=== PATIENT | female | born 1990 | race Caucasian/White ===

== ENCOUNTER 2019-02-05 21:51 | Inpatient (IN) | payer MEDICAID ==
[~2019-02-05] VITALS: Ht 162.6 cm; Wt 137.3 kg
[2019-02-05 22:20] VITALS: BP 126/77
[2019-02-05] MEDS ORDERED: LACTATED RINGERS 1,000 ML IV SCH (22:25)
[2019-02-05] MEDS ORDERED: NEWBORN KIT ONE (22:28)
[2019-02-05] MEDS ORDERED: SODIUM CITRATE/CITRIC ACID 15 ML UDC ONE (22:28)
[2019-02-05] MEDS ORDERED: METOCLOPRAMIDE 5 MG/ML, 2ML ONE (22:28)
[2019-02-05] MEDS ORDERED: OXYTOCIN 30U/ 0.9% NaCL 500ML 500 ML ONE (22:28)
[2019-02-05] MEDS ORDERED: LACTATED RINGERS 1,000 ML IVBOLUS ONE (22:30)
[2019-02-05] MEDS ORDERED: SODIUM CITRATE/CITRIC ACID 15 ML UDC PO ONE (22:30)
[2019-02-05] MEDS ORDERED: CALCIUM CARBONATE 500 MG TAB.CHEW PO PRN (22:30)
[2019-02-05] MEDS ORDERED: METOCLOPRAMIDE 5 MG/ML, 2ML IV ONE (22:30)
[2019-02-05] MEDS ORDERED: ONDANSETRON 2MG/ML, 2ML IVPush ONE (22:30)
[2019-02-05] MEDS: LACTATED RINGERS 1,000 ML IV SCH (22:34)
[2019-02-05] MEDS ORDERED: OXYTOCIN 10 UNITS/ML, 1ML ONE (22:47)
[2019-02-05] MEDS ORDERED: ONDANSETRON 2MG/ML, 2ML ONE (22:47)
[2019-02-05] MEDS ORDERED: HYDROmorphone 2 MG/ML, 1ML ONE (22:47)
[2019-02-05] MEDS ORDERED: FENTANYL PF 100 MCG/2ML ONE (22:47)
[2019-02-05] MEDS ORDERED: CEFAZOLIN 1,000 MG ONE ×2 (22:47→22:54)
[2019-02-05] MEDS ORDERED: SODIUM CHLORIDE 0.9% PF 10ML ONE ×3 (22:54)
[2019-02-05 22:57] LABS: BASOPHILS # (AUTO) 0.15 x10^3/uL (0-0.1); BASOPHILS % (AUTO) 2 % (0-1); EOSINOPHILS # (AUTO) 0.22 x10^3/uL (0-0.4); EOSINOPHILS % (AUTO) 2 % (1-7); LYMPHOCYTES # (AUTO) 1.78 x10^3/uL (1-3.4); LYMPHOCYTES % (AUTO) 20 % (22-44); MD NO; MEAN CORPUSCULAR HEMOGLOBIN 21.9 pg (27.0-34.8); MEAN CORPUSCULAR HGB CONC 32.1 g/dL (32.4-35.8); MEAN PLATELET VOLUME 10.7 fL (7.4-10.4); MONOCYTES # (AUTO) 0.68 x10^3/uL (0.2-0.8); MONOCYTES % (AUTO) 8 % (2-9); NEUTROPHILS # (AUTO) 6.27 x10^3/uL (1.8-6.8); NEUTROPHILS % (AUTO) 69 % (42-75); PLATELET COUNT 234 x10^3/uL (130-400); RED BLOOD COUNT 4.77 x10^6/uL (3.82-5.3)
[2019-02-05] MEDS ORDERED: MISOPROSTOL 200 MCG TABLET PR PRN (23:00)
[2019-02-05] MEDS ORDERED: OXYcodone/APAP 5/325MG TABLET PO PRN (23:00)
[2019-02-06] MEDS ORDERED: KETOROLAC 30 MG/1 ML ONE (00:45)
[2019-02-06] MEDS ORDERED: OXYcodone 5 MG/5 ML ORAL.SOL UDC ONE (00:45)
[2019-02-06] MEDS ORDERED: ONDANSETRON 2MG/ML, 2ML ONE (01:02)
[2019-02-06] MEDS: LACTATED RINGERS 1,000 ML IV SCH ×6 (01:11→22:34)
[2019-02-06] MEDS: KETOROLAC 30 MG/1 ML IV PRN ×4 (01:12→20:45)
[2019-02-06] MEDS: OXYTOCIN 30U/ 0.9% NaCL 500ML 500 ML IV SCH ×3 (01:17→19:13)
[2019-02-06] MEDS ORDERED: HYDROmorphone 2 MG/ML, 1ML IVPush PRN (01:30)
[2019-02-06] MEDS ORDERED: OXYcodone 5 MG/5 ML ORAL.SOL UDC PO PRN (01:30)
[2019-02-06] MEDS ORDERED: MEPERIDINE/PF 25MG/0.5ML IVPush PRN (01:30)
[2019-02-06] MEDS ORDERED: FENTANYL PF 100 MCG/2ML IV PRN (01:30)
[2019-02-06 02:15] VITALS: BP 120/67
[2019-02-06] MEDS: OXYcodone/APAP 5/325MG TABLET PO PRN ×3 (06:26→16:48)
[2019-02-06 06:55] VITALS: BP 118/63
[2019-02-06] MEDS: DOCUSATE 100 MG CAPSULE PO PRN ×2 (08:04→20:45)
[2019-02-06] MEDS: PRENATAL VIT/IRON/FA 1 EACH TABLET PO SCH (08:04)
[2019-02-06 08:45] LABS: BASOPHILS # (AUTO) 0.04 x10^3/uL (0-0.1); BASOPHILS % (AUTO) 0 % (0-1); EOSINOPHILS # (AUTO) 0.13 x10^3/uL (0-0.4); EOSINOPHILS % (AUTO) 1 % (1-7); LYMPHOCYTES # (AUTO) 1.42 x10^3/uL (1-3.4); LYMPHOCYTES % (AUTO) 13 % (22-44); MD NO; MEAN CORPUSCULAR HEMOGLOBIN 22.1 pg (27.0-34.8); MEAN CORPUSCULAR VOLUME 69.2 fL (80-100); MEAN PLATELET VOLUME 9.2 fL (7.4-10.4); MONOCYTES # (AUTO) 0.68 x10^3/uL (0.2-0.8); MONOCYTES % (AUTO) 6 % (2-9); NEUTROPHILS # (AUTO) 8.47 x10^3/uL (1.8-6.8); NEUTROPHILS % (AUTO) 79 % (42-75); PLATELET COUNT 176 x10^3/uL (130-400); RED BLOOD COUNT 4.47 x10^6/uL (3.82-5.3); RED CELL DISTRIBUTION WIDTH 15.5 % (9.6-15.2)
[2019-02-06 12:30] VITALS: BP 120/68
[2019-02-06 16:00] VITALS: BP 119/75
[2019-02-06 22:08] VITALS: BP 129/78
[2019-02-07 01:00] VITALS: BP 122/78
[2019-02-07] MEDS: OXYcodone/APAP 5/325MG TABLET PO PRN (01:27)
[2019-02-07] MEDS: LACTATED RINGERS 1,000 ML IV SCH ×5 (04:34→22:34)
[2019-02-07] MEDS: OXYTOCIN 30U/ 0.9% NaCL 500ML 500 ML IV SCH ×2 (04:34→14:34)
[2019-02-07] MEDS: IBUPROFEN 600 MG TABLET PO PRN ×4 (05:22→23:46)
[2019-02-07 07:35] VITALS: BP 121/78
[2019-02-07] MEDS: DOCUSATE 100 MG CAPSULE PO PRN (09:22)
[2019-02-07] MEDS: PRENATAL VIT/IRON/FA 1 EACH TABLET PO SCH (09:22)
[2019-02-07 20:30] VITALS: BP 145/75
[2019-02-08] MEDS: LACTATED RINGERS 1,000 ML IV SCH ×3 (00:34→10:34)
[2019-02-08] MEDS: OXYTOCIN 30U/ 0.9% NaCL 500ML 500 ML IV SCH ×2 (00:34→10:34)
[2019-02-08] MEDS: IBUPROFEN 600 MG TABLET PO PRN ×2 (06:00→12:00)
[2019-02-08 08:06] VITALS: BP 127/85
[2019-02-08] MEDS: DOCUSATE 100 MG CAPSULE PO PRN (09:04)
[2019-02-08] MEDS: PRENATAL VIT/IRON/FA 1 EACH TABLET PO SCH (09:04)
[2019-02-08] MEDS ORDERED: OXYC-302 PO (10:31)
[2019-02-08] MEDS ORDERED: IBUP-1222 PO (10:31)
== END 2019-02-08 14:30 | disposition home or self-care (01) | DRG 785 ==
LOC: LDOP 21:51 → LDIP 22:24 → 2NW 02-06 01:57
PROVIDERS: ADMIT Obstetrics & Gynecology; ATTEND Obstetrics & Gynecology
PROC: 10D00Z1 Extraction of Products of Conception, Low, Open Approach (ICD-10-PCS; principal; 2019-02-05)
PROC: 0UB70ZZ Excision of Bilateral Fallopian Tubes, Open Approach (ICD-10-PCS; 2019-02-05)
DX: O34.211 Maternal care for low transverse scar from previous cesarean delivery (principal); Z37.0 Single live birth; Z87.891 Personal history of nicotine dependence; E66.9 Obesity, unspecified; O99.214 Obesity complicating childbirth; O42.90 Premature rupture of membranes, unspecified as to length of time between rupture and onset of labor, unspecified weeks of gestation; Z90.49 Acquired absence of other specified parts of digestive tract; Z3A.37 37 weeks gestation of pregnancy
CPT/HCPCS: 36415; 85025; 86850; 86900; 88302; G0378; J0690; J1170; J1885; J2405; J3010; J2590; J2765; J7120